=== PATIENT | male | born 1950 | race Caucasian/White ===

== ENCOUNTER 2017-05-01 19:55 | Inpatient (IN) | payer BC, MEDICARE ==
[~2017-05-01] VITALS: Ht 180.3 cm; Wt 88.9 kg
--- NOTE | 2017-05-01 20:00 | NUR ---
TO BED 3 A 66 YO MALE PATIENT BIBWIFE FROM HOME PT C/O LEFT SIDED RIB/CHEST PAIN X 0800 AFTER A COUGH. PATIENT ALSO REPORTS THAT HE "PASSED OUT TWICE TODAY WHILE COUGHING. PATIENT IS AAOX4, VSS. SKIN WARM AND DRY. PLACED ON CARDIAC AND VS MONITORING. GOWNED. COMFORT MEASURES RENDERED.
[2017-05-01] MEDS ORDERED: MORPHINE SULFATE INJ 2 MG/ML DISP.SYRIN ONE (20:18)
[2017-05-01] MEDS ORDERED: ONDANSETRON HCL/PF 4 MG/2 ML VIAL ONE (20:18)
[2017-05-01] MEDS ORDERED: MORPHINE SULFATE INJ 4 MG/ML DISP.SYRIN ONE (20:19)
[2017-05-01] MEDS ORDERED: ONDANSETRON HCL/PF 4 MG/2 ML VIAL IVP ONE (20:30)
[2017-05-01] MEDS ORDERED: MORPHINE SULFATE INJ 2 MG/ML DISP.SYRIN IV ONE (20:30)
[2017-05-01] MEDS ORDERED: IV NS 0.9% 1,000 ML BAG IV ONE (20:30)
--- NOTE | 2017-05-01 20:30 | NUR ---
STARTED A SALINE LOCK ON THE RAC G18, BLOOD DRAWN AND SENT TO LAB.
--- NOTE | 2017-05-01 20:38 | NUR ---
MEDICATED PATIENT ORDERED BY DR VINES.
--- NOTE | 2017-05-01 20:39 | NUR ---
PATIENT TO RADIOLOGY.
[2017-05-01 20:56] LABS: INR 0.9 (0.87-1.13)
[2017-05-01] MEDS ORDERED: IPRATROPIUM NEB FS 0.5 MG/2.5 ML AMPUL.NEB NEB ONE (21:00)
[2017-05-01] MEDS ORDERED: ALBUTEROL FS 2.5 MG/3 ML VIAL.NEB NEB ONE (21:00)
[2017-05-01 21:01] LABS: ALANINE AMINOTRANSFERASE 34 U/L (12-78); ALBUMIN 3.8 g/dL (3.4-5.0); ALKALINE PHOSPHATASE 83 U/L (46-116); ASPARTATE AMINOTRANSFERASE 24 U/L (15-37); B-TYPE NATRIURETIC PEPTIDE 43 PG/ML (0-125); BILIRUBIN,DIRECT 0.1 mg/dL (0.0-0.2); BILIRUBIN,TOTAL 0.3 mg/dL (0.2-1.0); CALCIUM, SERUM 8.5 mg/dL (8.5-10.1); CARBON DIOXIDE 27 mmol/L (21-32); CHLORIDE 105 mmol/L (98-107); CREATININE 1.2 mg/dL (0.6-1.3); GLUCOSE 114 mg/dL (74-106); SODIUM SERUM 140 mmol/L (136-145); TOTAL PROTEIN, SERUM 6.8 g/dL (6.4-8.2); UREA NITROGEN, BLOOD 11 mg/dL (7-18)
[2017-05-01 21:03] LABS: TROPONIN I < 0.017 ng/mL (0.00-0.056)
[2017-05-01] MEDS ORDERED: ALBUTEROL FS 2.5 MG/3 ML VIAL.NEB ONE (21:14)
[2017-05-01] MEDS ORDERED: IPRATROPIUM NEB FS 0.5 MG/2.5 ML AMPUL.NEB ONE (21:14)
--- NOTE | 2017-05-01 21:17 | NUR ---
RT ROLLINS AT BEDSIDE FOR BREATHING TREATMENT.
[2017-05-01 21:29] LABS: BASOPHILS % (AUTO) 0.3 % (0.0-2.0); EOSINOPHILS # (AUTO) 0.1 /CMM (0.0-0.7); EOSINOPHILS % (AUTO) 1.3 % (0.0-6.0); HEMATOCRIT 42 % (39-51); HEMOGLOBIN 14.2 g/dL (13.5-17.5); LYMPHOCYTES # (AUTO) 0.4 /CMM (0.8-4.8); LYMPHOCYTES % (AUTO) 5.1 % (20.0-44.0); MEAN CORPUSCULAR HEMOGLOBIN 31 PG (26.0-33.0); MEAN CORPUSCULAR HGB CONC 34 g/dl (31.0-36.0); MEAN CORPUSCULAR VOLUME 92 fL (80-96); MONOCYTES # (AUTO) 0.6 /CMM (0.1-1.30); MONOCYTES % (AUTO) 7.8 % (2.0-12.0); NEUTROPHILS % (AUTO) 85.5 % (43.0-81.0); PLATELET COUNT (AUTO) 177 /CMM (150-450); RDW COEFFICIENT OF VARIATION 13.2 (11.5-15.0); RED BLOOD CELL COUNT(AUTO) 4.55 MIL/uL (4.5-6.0); WHITE BLOOD COUNT (AUTO) 7.1 K/uL (4.3-11.0)
[2017-05-01] MEDS ORDERED: KETOROLAC TROMETHAMINE INJ 30 MG/ML VIAL IV ONE (22:00)
[2017-05-01] MEDS ORDERED: KETOROLAC TROMETHAMINE INJ 30 MG/ML VIAL ONE (22:05)
--- NOTE | 2017-05-01 22:28 | NUR ---
REPORT GIVEN TO ABRAN CRAWFORD FOR ADMISSION AND OSWALD.
[2017-05-01] MEDS ORDERED: NITROGLYCERIN 0.4 MG/TAB BOTTLE SL PRN (22:30)
[2017-05-01] MEDS ORDERED: ONDANSETRON HCL/PF 4 MG/2 ML VIAL IVP PRN (22:30)
[2017-05-01] MEDS ORDERED: MORPHINE SULFATE INJ 2 MG/ML DISP.SYRIN IV PRN (22:30)
--- NOTE | 2017-05-01 22:41 | NUR ---
TRANSFERRED PATIENT TO TELE FLOOR VIA ALS PROTOCOL, NO INCIDENT NOTED. VSS. AT BEDSIDE.
[2017-05-01 23:19] VITALS: BP 145/96
--- NOTE | 2017-05-01 23:22 | NUR ---
Tele/Rn notes Received patient fromER, arrived on a gurney accompanied by family member, alert, orientedx3, able to verbalize needs, able to ambulate with supervision, on tele monitoring with ST [address], skin warm to touch, observe pain in ribs when coughing, with low grade fever. Belongings check for inventory, room orientation provided, provided needs will monitor.
[2017-05-01 23:51] VITALS: BP 145/96
[2017-05-02] VITALS (7 sets, daily range): BP systolic 109–145; BP diastolic 68–96
[2017-05-02] MEDS: ASPIRIN 81 MG TAB.CHEW PO SCH ×2 (00:29→09:24)
[2017-05-02] MEDS: METOPROLOL TARTRATE 25 MG TABLET PO SCH ×3 (00:30→16:44)
--- NOTE | 2017-05-02 04:31 | NUR ---
Tele/rn notes Patient tele at [address], resting comfortably in bed, verbalize some pain but refuse to take as needed pain medication as it does not work an prefer the toradol that is still awaiting for md clarification in am. patient no grimace and guarding . able to sleep during the night, cooperative to care.
--- NOTE | 2017-05-02 05:50 | NUR ---
Tele/rn notes Patient on isolation due to detection of Influenza B, observed with sneeze and cough and pain everytime patient cough, to follow up with am md for order.
--- NOTE | 2017-05-02 06:59 | NUR ---
328-2 Patient able to sleep during the night, reported pain in left rib cage while coughing, infomred morphine was not effective and need to follow as toradol pending per pharmacy, Noted sneeze and cough that causes pain in rib cage to folloe/ am rn for elma. coopertaive to care,on isolation carol Montiel detectected per protocol, will endorse to am rn for elma.
[2017-05-02 07:38] LABS: BASOPHILS % (AUTO) 0.2 % (0.0-2.0); EOSINOPHILS # (AUTO) 0.1 /CMM (0.0-0.7); EOSINOPHILS % (AUTO) 1.9 % (0.0-6.0); HEMATOCRIT 42 % (39-51); HEMOGLOBIN 14.2 g/dL (13.5-17.5); LYMPHOCYTES # (AUTO) 0.5 /CMM (0.8-4.8); LYMPHOCYTES % (AUTO) 9.2 % (20.0-44.0); MEAN CORPUSCULAR HEMOGLOBIN 32 PG (26.0-33.0); MEAN CORPUSCULAR HGB CONC 34 g/dl (31.0-36.0); MEAN CORPUSCULAR VOLUME 93 fL (80-96); MONOCYTES # (AUTO) 0.4 /CMM (0.1-1.30); MONOCYTES % (AUTO) 7.7 % (2.0-12.0); NEUTROPHILS # (AUTO) 4.4 /CMM (1.8-8.9); PLATELET COUNT (AUTO) 181 /CMM (150-450); RDW COEFFICIENT OF VARIATION 13.6 (11.5-15.0); RED BLOOD CELL COUNT(AUTO) 4.51 MIL/uL (4.5-6.0); WHITE BLOOD COUNT (AUTO) 5.4 K/uL (4.3-11.0)
[2017-05-02 07:56] LABS: CALCIUM, SERUM 7.8 mg/dL (8.5-10.1); CREATININE 1.3 mg/dL (0.6-1.3); MAGNESIUM 1.8 mg/dL (1.8-2.4); PHOSPHORUS 2.7 mg/dL (2.5-4.9); POTASSIUM 4.1 mmol/L (3.5-5.1)
--- NOTE | 2017-05-02 08:00 | NUR ---
rn notes RECEIVED PATIENT IN THE BED ON DROPLET ISOLATION, TELE SR-98, PATIENT SNEEZE, AND COUGHING , ALSO C/O LEFT LOWER RIB CAGE PAIN WHEN COUGHING, V/S TAKEN STABLE, IV ACCESS ON RIGHT AC AREA INTACT, PATIENT AMBULATORY, USING BATHROOM, NEEDS ATTENDED AND ANTICIPATED, CONTINUED MONITORING.
[2017-05-02] MEDS ORDERED: BUPR150T10 PO (08:05)
[2017-05-02] MEDS ORDERED: AMLO2.5T PO (08:05)
[2017-05-02] MEDS: KETOROLAC TROMETHAMINE INJ 30 MG/ML VIAL IV PRN ×2 (09:26→19:06)
--- NOTE | 2017-05-02 09:26 | NUR ---
RN NOTES ADMINISTERED TORADOL 30 M/ML IV PUSH FOR LEFT LOWER RIB CAGE PAIN / PER PATIENT REQUEST AFTER SNEEZING, AD COUGHING , V/S TAKEN BP-133/81, P-91, CALL LIGHT WITHIN TO REACH, SAFETY PRECAUTION MAINTAINED ALL THE TIME. ENCOURAGED PATIENT INCREASE FLUID INTAKE.
--- NOTE | 2017-05-02 10:00 | NUR ---
RN NOTES PATIENT RESTING IN THE BED AT THIS TIME, MEDICATION WERE ADMINISTERED FOR PAIN EFFECTIVE, NO ACUTE RESPIRATORY DISTRESS, CALL LIGHT WITHIN TO REACH, CONTINUED MONITORING.
[2017-05-02] MEDS ORDERED: HYDROCODONE/APAP 5/325MG 1 EACH TABLET PO PRN (11:30)
[2017-05-02] MEDS: AMLODIPINE BESYLATE 5 MG TABLET PO SCH (12:19)
[2017-05-02] MEDS: buPROPion SR 150 MG TABLET.ER PO SCH (16:43)
--- NOTE | 2017-05-02 18:27 | NUR ---
RN NOTES PATIENT D/C FOR TELE.
--- NOTE | 2017-05-02 19:06 | NUR ---
RN NOTES ADMINISTERED TORADOL 30 MG/ML IV PUSH FOR LEFT LOWER RIB CAGE PAIN 09/04, PER PATIENT REQUEST, V/S STABLE, SCHEDULED MEDICATION MONITORED, CALL ALMAGUER WITHIN TO REACH, SAFETY PRECAUTION MAINTAINED ALL THE TIME, ENDORSED ONCOMING NURSE FOR OSWALD.
--- NOTE | 2017-05-02 19:45 | NUR ---
MS MORENO INITIAL NOTES SEEN PT IN BED AFTER GOT REPORT FROM AM NURSE. HE'S AWAKE AND ALERT WATCHING TV AT THIS TIME. DENIES ANY OR ANY DISCOMFORT. HEPLOCK PATENT AND INTACT. PT AWARE THAT HE'S POSITIVE INFLUENZA B. ENCOURAGE HIM TO USE THE CALL LIGHT SYSTEM IF HE NEEDS SOME HELPED. KEPT HIM WARM AND COMFORTABLE AT ALL TIMES. PLACE CALL LIGHT AT REACH. DROPLET ISOLATION IMPLEMENTED AND OBSERVED. WILL CONTINUE MONITORING.
[2017-05-02] MEDS: ALBUTEROL FS 2.5 MG/3 ML VIAL.NEB NEB SCH (21:30)
[2017-05-02] MEDS ORDERED: BENZONATATE 100 MG CAPSULE PO PRN (21:30)
[2017-05-02] MEDS: LEVOFLOXACIN 500 MG /D5W 100ML 500 MG in PREMIX 1 EA IV SCH (21:30)
[2017-05-02] MEDS ORDERED: ALBUTEROL FS 2.5 MG/3 ML VIAL.NEB NEB ONE (21:30)
[2017-05-02] MEDS ORDERED: GUAIFENESIN/CODEINE 10 ML UDC PO PRN (21:30)
[2017-05-02] MEDS ORDERED: OSELTAMIVIR PHOSPHATE 75 MG CAPSULE PO ONE (21:30)
[2017-05-03] VITALS: BP 126/81
[2017-05-03] MEDS ORDERED: OSELTAMIVIR PHOSPHATE 75 MG CAPSULE ONE (00:15)
[2017-05-03] MEDS ORDERED: LEVOFLOXACIN 500 MG /D5W 100ML 100 ML IV ONE (00:24)
--- NOTE | 2017-05-03 06:48 | NUR ---
MS PILOT CONTROL OPERATOR CLOSING NOTES' PT AWAKE AND ALERT COMPLAINING OF PAIN ON HIS LEFT RIBS UNDER HIS BREAST SPECIALLY WHEN HE'S SNEEZING AND COUGHING. STABLE ESTEVAN THE NIGHT AND SLEPT WELL. DUE MEDS GIVEN AND ALL NEEDS MET. PAIN MEDS WILL ADMINISTERED BY ANOTHER NURSE ESTEVNA IVP ORDERED. KEPT HIM WARM AND COMFORTABLE AT ALL TIMES. WILL ENDORSE TO AM NURSE FOR CONTINUITY OF CARE. PLACE CALL LIGHT AT REACH.
[2017-05-03] MEDS: KETOROLAC TROMETHAMINE INJ 30 MG/ML VIAL IV PRN (06:53)
--- NOTE | 2017-05-03 06:53 | NUR ---
PRN TORADOL GIVEN PT HAD C/O LEFT ABDOMEN AREA PAIN & ASKED FOR PAIN MEDICINE, PRN TORADOL GIVEN ORDERED. WILL ENDORSE TO AM RN TO REASSESS FOR THE PAIN MED EFFECTIVENESS.
--- NOTE | 2017-05-03 07:15 | NUR ---
ms rn initial notes Received patient in bed, asleep, head of bed elevated, no SOB or distress noted. On room air and tolerated well. Alert and oriented x 4, verbally responsive and able to make needs known. IV intact and patent. Kept patient clean and comfortable in bed, call light with in patient reach, will continue to monitor accordingly.
[2017-05-03 07:28] LABS: BASOPHILS % (AUTO) 0.2 % (0.0-2.0); EOSINOPHILS # (AUTO) 0.1 /CMM (0.0-0.7); EOSINOPHILS % (AUTO) 1.1 % (0.0-6.0); HEMATOCRIT 43 % (39-51); HEMOGLOBIN 14.6 g/dL (13.5-17.5); LYMPHOCYTES # (AUTO) 0.9 /CMM (0.8-4.8); LYMPHOCYTES % (AUTO) 16.3 % (20.0-44.0); MEAN CORPUSCULAR HEMOGLOBIN 32 PG (26.0-33.0); MEAN CORPUSCULAR HGB CONC 34 g/dl (31.0-36.0); MEAN CORPUSCULAR VOLUME 92 fL (80-96); MONOCYTES # (AUTO) 0.4 /CMM (0.1-1.30); MONOCYTES % (AUTO) 7.9 % (2.0-12.0); NEUTROPHILS # (AUTO) 3.9 /CMM (1.8-8.9); NEUTROPHILS % (AUTO) 74.5 % (43.0-81.0); PLATELET COUNT (AUTO) 172 /CMM (150-450); RDW COEFFICIENT OF VARIATION 13.2 (11.5-15.0); RED BLOOD CELL COUNT(AUTO) 4.62 MIL/uL (4.5-6.0); WHITE BLOOD COUNT (AUTO) 5.3 K/uL (4.3-11.0)
[2017-05-03 07:35] LABS: CALCIUM, SERUM 7.8 mg/dL (8.5-10.1); CREATININE 1.1 mg/dL (0.6-1.3); PHOSPHORUS 2.6 mg/dL (2.5-4.9)
[2017-05-03] MEDS: ALBUTEROL FS 2.5 MG/3 ML VIAL.NEB NEB SCH ×4 (07:53→20:16)
[2017-05-03 07:58] LABS: THYROID STIMULATING HORMONE 4.649 uIU/mL (0.358-3.74)
[2017-05-03 08:00] VITALS: BP 141/87
[2017-05-03] MEDS: OSELTAMIVIR PHOSPHATE 75 MG CAPSULE PO SCH ×2 (08:16→16:40)
[2017-05-03] MEDS: buPROPion SR 150 MG TABLET.ER PO SCH ×2 (08:16→16:40)
[2017-05-03] MEDS: ASPIRIN 81 MG TAB.CHEW PO SCH (08:16)
[2017-05-03] MEDS: METOPROLOL TARTRATE 25 MG TABLET PO SCH ×2 (08:16→16:40)
[2017-05-03] MEDS: AMLODIPINE BESYLATE 5 MG TABLET PO SCH (08:16)
[2017-05-03] MEDS: IBUPROFEN 600 MG TABLET PO SCH ×3 (09:28→16:40)
[2017-05-03 16:00] VITALS: BP 121/73
--- NOTE | 2017-05-03 19:17 | NUR ---
ms rn closing notes All needs provided, attended, and anticipated. Kept patient clean and comfortable in bed, call light with in patient reach, endorsed to next shift RN to continue care.
[2017-05-03 20:00] VITALS: BP 124/81
--- NOTE | 2017-05-03 20:00 | NUR ---
MS MORENO INITIAL NOTES SEEN PT IN BED LYING WHILE WATCHING TV AT THIS TIME. DENIES ANY PAIN OR ANY DISCOMFORT. HE STATED MUCH FEEL BETTER. STILL ON DROPLET ISOLATION . NO SOB OR ANY ACUTE DISTRESS NOTED. KEPT HIM WARM AND COMFORTABLE AT ALL TIMES. TOLD HIS MEDICATION TONIGHT AND HE UNDERSTOOD WELL. PLACE CALL LIGHT AT REACH.
[2017-05-03] MEDS: LEVOFLOXACIN 500 MG /D5W 100ML 500 MG in PREMIX 1 EA IV SCH (22:10)
--- NOTE | 2017-05-04 06:52 | NUR ---
MS GRAVITY METER OPERATOR CLOSING NOTES PT REMAIN SLEEPING AT THIS TIME, BREATHING EVEN AND NON-LABORED, NOT IN ANY ACUTE DISTRESS NOTED, STABLE ESTEVAN THE NIGHT AND SLEPT WELL. DUE MED GIVEN AND ALL NEEDS MET. KEPT HIM WARM AND COMFORTABLE AT ALL TIMES. PLACE CALL LIGHT AT REACH. ENDORSE TO AM NURSE FOR CONTINUITY OF CARE.
[2017-05-04 08:00] VITALS: BP 129/86
--- NOTE | 2017-05-04 08:00 | NUR ---
PASTORAL ASSISTANT AM NOTE RECEIVED PATIENT SITTING IN CHAIR NEXT TO BED. ALERT AND ORIENTED X4. VITAL SIGNS STABLE, RESPIRATIONS EVEN AND UNLABORED WITH OXYGEN SATURATION OF 98%. PATIENT DENIES PAIN OR DISTRESS. RIGHT AC 18G INTACT AND PATENT, FLUSHES EASILY. PATIENT AMBULATORY WITH BATHROOM PRIVILEGES. BED IN LOW POSITION, CALL LIGHT WITHIN REACH.
[2017-05-04] MEDS: ALBUTEROL FS 2.5 MG/3 ML VIAL.NEB NEB SCH (08:29)
--- NOTE | 2017-05-04 08:29 | NUR ---
RT PATIENT AWAKE, ALERT, NO SOB NOTED. REFUSED RESP HHN TX.
[2017-05-04] MEDS: ASPIRIN 81 MG TAB.CHEW PO SCH (08:42)
[2017-05-04] MEDS: IBUPROFEN 600 MG TABLET PO SCH (08:42)
[2017-05-04] MEDS: AMLODIPINE BESYLATE 5 MG TABLET PO SCH (08:42)
[2017-05-04 08:43] VITALS: BP 129/86
[2017-05-04] MEDS: buPROPion SR 150 MG TABLET.ER PO SCH (08:43)
[2017-05-04] MEDS: METOPROLOL TARTRATE 25 MG TABLET PO SCH (08:43)
[2017-05-04] MEDS: OSELTAMIVIR PHOSPHATE 75 MG CAPSULE PO SCH (08:43)
--- NOTE | 2017-05-04 12:00 | NUR ---
DISCHARGED PT HOME VIA PRIVATE CAR WITH STABLE V/S ACCOMPANIED BY HIS .IV H/L REMOVED TO RT AC WITHOUT BLEEDING NOTED.PT TOLERATED WELL.
== END 2017-05-04 13:00 | disposition home or self-care (01) | DRG 195 ==
LOC: ER 19:58 → TELE 22:15 → MED 05-02 20:59
PROVIDERS: ADMIT Internal Medicine; ATTEND Internal Medicine
DX: J10.00 Influenza due to other identified influenza virus with unspecified type of pneumonia (principal); E78.5 Hyperlipidemia, unspecified; J18.9 Pneumonia, unspecified organism; F32.9 Major depressive disorder, single episode, unspecified; I10 Essential (primary) hypertension; R07.81 Pleurodynia
CPT/HCPCS: 36415; 71045-TC; 71250-TC; 80048-TC; 80061-TC; 80076-TC; 82746; 83540-TC; 83605-TC; 83735-TC; 83880; 84100-TC; 84439-TC; 84443-TC; 84484-TC; 85025-TC; 85730-TC; 87081-TC; 87400; 93307-TC; A4216; A4606; J1885; J1956; J2270; J2405; J7030; J7050; Z7610